=== PATIENT | male | born 1935 | race African-American/Black ===

== ENCOUNTER 2018-10-19 01:37 | Inpatient (IN) | payer MEDICARE, OTHER ==
[2018-10-19] VITALS (12 sets, daily range): BP systolic 118–166; BP diastolic 61–73
[~2018-10-19] VITALS: Ht 167.6 cm; Wt 59.6 kg
[~2018-10-19 01:37] MED LIST: aspirin; atenolol; felodipine; hctz; hydralazine
[2018-10-19] MEDS ORDERED: SODIUM CHLORIDE 0.9% 1,000 ML IV ONE (02:00)
[2018-10-19 02:33] LABS: MEAN CORPUSCULAR HEMOGLOBIN 30.8 pg (28.0-32.0); MEAN CORPUSCULAR VOLUME 93.2 fL (80.0-94.0); MEAN PLATELET VOLUME 9.7 fl (7.4-10.4); PLATELET 172 x1000/uL (130-400); RED BLOOD CELL COUNT 1.81 mill/uL (4.7-6.1); RED CELL DISTRIBUTION WIDTH 15.8 % (11.6-14.6)
[2018-10-19 02:35] LABS: CHLORIDE 109 mEq/L (98-107)
[2018-10-19 02:41] LABS: HEMATOCRIT. 16.8 % (42.0-52.0); HEMOGLOBIN. 5.6 g/dL (14.0-18.0)
[2018-10-19 02:52] LABS: CLARITY URINE CLEAR (CLEAR); COLOR URINE YELLOW (YELLOW); KETONES URINE NEGATIVE (NEGATIVE); LEUKOCYTE ESTERASE URINE NEGATIVE (NEGATIVE); NITRITE URINE NEGATIVE (NEGATIVE); OCCULT BLOOD URINE 1+ (NEGATIVE); PROTEIN URINE 1+ (NEGATIVE); SPECIFIC GRAVITY URINE 1.014 (1.005-1.030); UROBILINOGEN URINE 0.2 E.U./dL (0.2-1.0)
[2018-10-19] MEDS ORDERED: FAMOTIDINE 20MG/2ML VIAL IV ONE (03:30)
[2018-10-19 04:05] LABS: PLATELET ESTIMATE NORMAL
[2018-10-19] MEDS ORDERED: ASPI-1158 PO (10:58)
[2018-10-19] MEDS ORDERED: SULF-288 PO (10:58)
[2018-10-19] MEDS ORDERED: HYDR-4135 PO (10:58)
[2018-10-19] MEDS ORDERED: P20 MT (10:58)
[2018-10-19] MEDS ORDERED: LOVA40TA73 PO (10:58)
[2018-10-19] MEDS ORDERED: FELO10TA PO (10:58)
[2018-10-19] MEDS ORDERED: CYCL50CA3 MT (10:58)
[2018-10-19] MEDS ORDERED: FERR325T6 PO (10:58)
[2018-10-19] MEDS ORDERED: FINA5TAB11 PO (10:58)
[2018-10-19] MEDS ORDERED: CARV12.545 PO (10:58)
[2018-10-19] MEDS ORDERED: ONDANSETRON HCL 4MG/2ML INJ IV PRN (13:45)
[2018-10-19] MEDS ORDERED: ACETAMINOPHEN 325MG TABLET PO PRN (13:45)
[2018-10-19] MEDS ORDERED: PANTOPRAZOLE 40MG DR TABLET PO SCH (13:45)
[2018-10-19] MEDS: CARVEDILOL 12.5MG TABLET PO SCH ×2 (15:44→20:40)
[2018-10-19] MEDS: SODIUM CHLORIDE 0.9% INJ 3ML FLUSH IVF SCH ×2 (15:45→22:12)
[2018-10-19] MEDS: HYDRALAZINE HCL 50MG TABLET PO SCH ×2 (15:45→22:12)
[2018-10-19] MEDS: PANTOPRAZOLE SODIUM 40 MG/VIAL IV SCH (15:45)
[2018-10-19] MEDS: HYDROCORTISONE SOD SUCCINATE 100 MG/2 ML VIAL IV SCH (16:05)
[2018-10-19] MEDS ORDERED: ATORVASTATIN CALCIUM 20MG TABLET PO SCH (21:00)
[2018-10-19] MEDS: DEXT 5%/0.45% NACL 1000ML 1,000 ML IV SCH (22:13)
[2018-10-19 23:43] LABS: HEMATOCRIT. 30.5 % (42.0-52.0); HEMOGLOBIN. 10.7 g/dL (14.0-18.0); MEAN CORPUSCULAR HEMOGLOBIN 30.8 pg (28.0-32.0); MEAN CORPUSCULAR VOLUME 87.9 fL (80.0-94.0); MEAN PLATELET VOLUME 8.9 fl (7.4-10.4); PLATELET 121 x1000/uL (130-400); RED BLOOD CELL COUNT 3.47 mill/uL (4.7-6.1); RED CELL DISTRIBUTION WIDTH 14.7 % (11.6-14.6)
[2018-10-20] VITALS: BP 145/65
[2018-10-20] MEDS: DEXT 5%/0.45% NACL 1000ML 1,000 ML IV SCH ×2 (00:29→11:16)
[2018-10-20] MEDS: HYDROCORTISONE SOD SUCCINATE 100 MG/2 ML VIAL IV SCH ×3 (00:29→15:58)
[2018-10-20 00:38] LABS: INR 1.1; PARTIAL THROMBOPLASTIN TIME 24.8 sec (23.4-31.0); PROTHROMBIN TIME 10.8 sec (9.6-11.0)
[2018-10-20 04:00] VITALS: BP 159/71
[2018-10-20] MEDS: PANTOPRAZOLE SODIUM 40 MG/VIAL IV SCH ×2 (04:13→15:58)
[2018-10-20 05:42] LABS: NUCLEATED RED BLOOD CELLS 1 /100 WBC
[2018-10-20 05:43] LABS: PLATELET ESTIMATE SLIGHTLY DECREASED
[2018-10-20 06:51] LABS: HEMATOCRIT. 29.1 % (42.0-52.0); HEMOGLOBIN. 10.3 g/dL (14.0-18.0); MEAN PLATELET VOLUME 9.2 fl (7.4-10.4); PLATELET 120 x1000/uL (130-400); RED BLOOD CELL COUNT 3.31 mill/uL (4.7-6.1); RED CELL DISTRIBUTION WIDTH 14.7 % (11.6-14.6)
[2018-10-20] MEDS: HYDRALAZINE HCL 50MG TABLET PO SCH ×2 (06:52→15:57)
[2018-10-20] MEDS: SODIUM CHLORIDE 0.9% INJ 3ML FLUSH IVF SCH ×2 (06:52→15:58)
[2018-10-20 07:24] LABS: CARCINO EMBRYONIC ANTIGEN 1.7 ng/ml; PROSTRATE SPECIFIC AG TOTAL 4.05 ng/mL (0.0-4.0)
[2018-10-20 08:00] VITALS: BP 162/72
[2018-10-20] MEDS ORDERED: PREDNISONE 20MG TABLET PO SCH (09:00)
[2018-10-20] MEDS ORDERED: FINASTERIDE 5MG TABLET PO SCH (09:00)
[2018-10-20] MEDS: CARVEDILOL 12.5MG TABLET PO SCH (09:28)
[2018-10-20] MEDS ORDERED: BACTERIOSTATIC SODIUM CHLORIDE 0.9% 30ML VIAL IJ ONE (10:48)
[2018-10-20 12:00] VITALS: BP 167/82
[2018-10-20] MEDS ORDERED: SIMETHICONE 40 MG/0.6 ML 30ML ONE (12:00)
[2018-10-20] MEDS ORDERED: FENTANYL CITRATE/PF 50MCG/ML 2ML VIAL ONE (13:29)
[2018-10-20] MEDS ORDERED: MIDAZOLAM HCL 5 MG/5 ML VIAL ONE (13:29)
[2018-10-20] MEDS ORDERED: MIDAZOLAM HCL 5 MG/5 ML VIAL IV PRN (13:39)
[2018-10-20] MEDS ORDERED: FENTANYL CITRATE/PF 50MCG/ML 2ML VIAL IV PRN (13:40)
[2018-10-20 13:51] LABS: PLATELET ESTIMATE SLIGHTLY DECREASED
[2018-10-20 16:00] VITALS: BP 157/77
[2018-10-20] MEDS ORDERED: SUCRALFATE 1G TABLET PO SCH (16:45)
== END 2018-10-20 17:35 | disposition short-term general hospital (02) | DRG 377 ==
LOC: ER 01:37 → EDBEDREQTM 03:31 → EDBEDREQ 03:31 → 5WST 07:43 → EDBEDREQ 07:49 → EDBEDREQTM 07:58 → EDBEDREQ 07:58 → ENRESERV 09:03
PROVIDERS: ADMIT Ophthalmology; ATTEND Ophthalmology
PROC: 30233N1 Transfusion of Nonautologous Red Blood Cells into Peripheral Vein, Percutaneous Approach (ICD-10-PCS; 2018-10-19)
PROC: 0DB68ZX Excision of Stomach, Via Natural or Artificial Opening Endoscopic, Diagnostic (ICD-10-PCS; principal; 2018-10-20)
DX: K26.4 Chronic or unspecified duodenal ulcer with hemorrhage (principal); N01.8 Rapidly progressive nephritic syndrome with other morphologic changes; E44.0 Moderate protein-calorie malnutrition; D63.8 Anemia in other chronic diseases classified elsewhere; D69.6 Thrombocytopenia, unspecified; D72.829 Elevated white blood cell count, unspecified; E78.5 Hyperlipidemia, unspecified; E87.5 Hyperkalemia; H40.9 Unspecified glaucoma; I12.9 Hypertensive chronic kidney disease with stage 1 through stage 4 chronic kidney disease, or unspecified chronic kidney disease; I25.10 Atherosclerotic heart disease of native coronary artery without angina pectoris; H26.9 Unspecified cataract; M10.9 Gout, unspecified; I77.6 Arteritis, unspecified; N18.3 Chronic kidney disease, stage 3 (moderate); Z85.038 Personal history of other malignant neoplasm of large intestine; Z85.46 Personal history of malignant neoplasm of prostate; Z85.528 Personal history of other malignant neoplasm of kidney; Z90.49 Acquired absence of other specified parts of digestive tract; Z90.5 Acquired absence of kidney; Z90.79 Acquired absence of other genital organ(s); Z95.5 Presence of coronary angioplasty implant and graft; Z68.21 Body mass index [BMI] 21.0-21.9, adult; C61 Malignant neoplasm of prostate
CPT/HCPCS: 36415; 71045; 80048; 82378; 82728; 83540; 83550; 83735; 83880; 84100; 84153; 84484; 86850; 86900; 86920; 88305; 88312; 88313; 93005; 96374; 99285; C9113; J1720; J2250; J3010; J3490; J7030; J7040; J7050; P9016; G0103